=== PATIENT | female | born 1980 | race Caucasian/White ===

== ENCOUNTER 2017-10-14 10:12 | Inpatient (IN) | payer OTHER ==
[~2017-10-14] VITALS: Ht 172.7 cm; Wt 75.7 kg
[~2017-10-14 10:12] MED LIST: AMILORIDE5 MG PO; ASPIRIN81 M1 PO; CHLORTHALIDONE25 MG PO; CLONIDINE HCL0.1 M1 PO; CLONIDINE HCL0.1 MG PO; DUONEB 3 MG/3 ML3 M1 INH; FLOMAX0.4 MG PO; HYCODAN,HYDROME10 ML PO; KLONOPIN0.5 MG PO; LEVOTHYROXIN0.075 MG PO; LISINOPRIL10 M1 PO; LISINOPRIL5 MG PO; MACROBID100 M1 PO; METFORMIN500 MG PO; NORVASC10 MG PO; PERCOCET 325 MG1 TA2 PO; PREDNISONE20 M1 PO; VENTOLIN H0.09 MG/AC INH; WELLBUTRIN SR150 MG PO; ZITHROMAX250 MG PO; ZOFRAN4 MG PO
[2017-10-14 10:34] VITALS: BP 204/117
[2017-10-14 10:58] LABS: HEMATOCRIT 37.2 % (37.0-47.0); HEMOGLOBIN 13.1 g/dl (12.0-16.0); MEAN CORPUSCULAR HGB 29.2 pg (27.0-31.0); MEAN CORPUSCULAR HGB CONC 35.2 g/dl (33.0-37.0); MEAN PLATELET VOLUME 8.5 fl (9.6-12.3); PLATELET COUNT AUTOMATED 447 10*3/uL (130-400); RED BLOOD COUNT 4.48 10*6/uL (4.10-5.10); RED CELL DISTRI WIDTH 13.3 % (0-14.5); WHITE BLOOD COUNT 16.2 10*3/uL (4.8-10.8)
[2017-10-14 11:13] VITALS: BP 178/108
[2017-10-14 11:17] LABS: ACANTHOCYTES FEW; PLATELET SUFFICIENCY HIGH (NORMAL); TOTAL CELLS COUNTED 100 #CELLS
[2017-10-14 11:27] LABS: ALBUMIN 3.7 gm/dl (3.1-4.5); ALKALINE PHOSPHATASE 66 U/L (45-117); BUN 11 mg/dl (7-24); CHLORIDE 101 mmol/L (98-107); CREATININE 0.88 mg/dL (0.55-1.02); POTASSIUM 2.9 mmol/L (3.5-5.1); SGOT/AST 15 IU/L (3-35); SGPT/ALT 25 U/L (12-78); SODIUM 136 mmol/L (136-145); TOTAL PROTEIN 7.8 gm/dL (6.4-8.2)
[2017-10-14 11:39] VITALS: BP 155/95
[2017-10-14] MEDS ORDERED: CRESTOR20 M1 PO (12:53)
[2017-10-14] MEDS ORDERED: PROZAC10 MG PO (12:53)
[2017-10-14] MEDS ORDERED: REMERON15 M2 PO (12:54)
[2017-10-14 16:00] VITALS: BP 139/83
[2017-10-14 16:18] LABS: BILIRUBIN NEGATIVE (NEGATIVE); BLOOD TRACE-LYSED (NEGATIVE); CLARITY SL CLOUDY (CLEAR); COLOR YELLOW (YELLOW); GLUCOSE NEGATIVE (NEGATIVE); KETONE NEGATIVE (NEGATIVE); LEUKO ESTERASE TRACE (NEGATIVE); NITRITE NEGATIVE (NEGATIVE); SPECIFIC GRAVITY <= 1.005 (1.005-1.030); UROBILINOGEN 0.2 E.U./dl (0.2-1.0)
[2017-10-14 16:33] LABS: BACTERIA 4+
[2017-10-14 16:34] LABS: WBC 16-20 wbc/hpf (0-5)
[2017-10-14 20:00] VITALS: BP 165/85
[2017-10-14] MEDS ORDERED: LISINOPRIL20 MG PO (23:07)
[2017-10-14] MEDS ORDERED: CHLORTHALIDONE25 MG PO (23:07)
[2017-10-15 01:22] VITALS: BP 151/91
[2017-10-15 06:19] LABS: HEMATOCRIT 33.4 % (37.0-47.0); HEMOGLOBIN 11.4 g/dl (12.0-16.0); MEAN CORPUSCULAR HGB CONC 34.1 g/dl (33.0-37.0); MEAN PLATELET VOLUME 8.9 fl (9.6-12.3); PLATELET COUNT AUTOMATED 411 10*3/uL (130-400); RED BLOOD COUNT 3.93 10*6/uL (4.10-5.10); RED CELL DISTRI WIDTH 13.7 % (0-14.5); WHITE BLOOD COUNT 16.3 10*3/uL (4.8-10.8)
[2017-10-15 06:54] LABS: BUN 8 mg/dl (7-24); CHLORIDE 104 mmol/L (98-107); POTASSIUM 3.5 mmol/L (3.5-5.1); SODIUM 136 mmol/L (136-145)
[2017-10-15 07:06] LABS: CHOLESTEROL 187 mg/dL (<200); CREATININE 0.74 mg/dL (0.55-1.02); HDL CHOLESTEROL 57 mg/dl (40-60); LDL CHOLESTEROL 113 mg/dL (9-159); PHOSPHOROUS 1.5 mg/dL (2.5-4.9); THYROID STIM HORMONE (HS) 0.981 uIU/ml (0.358-4.75); TRIGLYCERIDES 86 mg/dl (<150); VLDL CHOLESTEROL 17 mg/dL (6-40)
[2017-10-15 07:19] LABS: PLATELET SUFFICIENCY HIGH (NORMAL); TOTAL CELLS COUNTED 100 #CELLS
[2017-10-15 07:20] LABS: ACANTHOCYTES FEW; BURR CELLS MODERATE
[2017-10-15 08:00] VITALS: BP 139/81
[2017-10-15 08:44] LABS: VITAMIN D, 25-HYDROXY 6.5 ng/mL (30-100)
[2017-10-15 12:00] VITALS: BP 142/87
[2017-10-15 16:00] VITALS: BP 135/77
[2017-10-15 20:00] VITALS: BP 147/77
[2017-10-16] VITALS: BP 130/73
[2017-10-16 07:14] LABS: BASO % 0.5 % (0.0-1.0); EOS # 0.2 10*3/uL (0.0-0.4); EOS % 2.4 % (1.0-4.0); HEMATOCRIT 32.7 % (37.0-47.0); LYMPH # 2.7 10*3/uL (1.3-4.4); LYMPH % 31.7 % (27.0-41.0); MEAN CELL VOLUME 86.5 fl (81.0-99.0); MEAN CORPUSCULAR HGB 29.1 pg (27.0-31.0); MEAN CORPUSCULAR HGB CONC 33.6 g/dl (33.0-37.0); MEAN PLATELET VOLUME 8.9 fl (9.6-12.3); MONO # 1.1 10*3/uL (0.1-1.0); MONO % 12.6 % (3.0-9.0); NEUT # 4.5 10*3/uL (2.3-7.9); NEUT % 52.6 % (47.0-73.0); PLATELET COUNT AUTOMATED 381 10*3/uL (130-400); RED BLOOD COUNT 3.78 10*6/uL (4.10-5.10); RED CELL DISTRI WIDTH 13.9 % (0-14.5); WHITE BLOOD COUNT 8.5 10*3/uL (4.8-10.8)
[2017-10-16 07:24] LABS: BUN 8 mg/dl (7-24); CHLORIDE 110 mmol/L (98-107); CREATININE 0.59 mg/dL (0.55-1.02); PHOSPHOROUS 2.6 mg/dL (2.5-4.9); POTASSIUM 3.7 mmol/L (3.5-5.1); SODIUM 142 mmol/L (136-145)
[2017-10-16 08:00] VITALS: BP 142/87
[2017-10-16] MEDS ORDERED: VITAMIN D-32000 UNI1 PO (10:45)
[2017-10-16] MEDS ORDERED: SEPTDS PO (10:45)
== END 2017-10-16 11:16 | disposition home or self-care (01) | DRG 871 ==
LOC: ED 10:12 → EDHOLD 11:24 → 4E 11:34
PROVIDERS: Internal Medicine Nephrology; Nurse Practitioner Family
DX: A41.51 Sepsis due to Escherichia coli [E. coli] (principal); J11.00 Influenza due to unidentified influenza virus with unspecified type of pneumonia; N39.0 Urinary tract infection, site not specified; E87.6 Hypokalemia; E66.3 Overweight; R31.9 Hematuria, unspecified; I16.0 Hypertensive urgency; D72.821 Monocytosis (symptomatic); D47.3 Essential (hemorrhagic) thrombocythemia; R73.9 Hyperglycemia, unspecified; G43.909 Migraine, unspecified, not intractable, without status migrainosus; I10 Essential (primary) hypertension; F41.9 Anxiety disorder, unspecified; E03.9 Hypothyroidism, unspecified; Z68.25 Body mass index [BMI] 25.0-25.9, adult; Z79.82 Long term (current) use of aspirin; Z79.899 Other long term (current) drug therapy; Z87.442 Personal history of urinary calculi; Z98.891 History of uterine scar from previous surgery; Z90.710 Acquired absence of both cervix and uterus; Z90.49 Acquired absence of other specified parts of digestive tract; Z82.49 Family history of ischemic heart disease and other diseases of the circulatory system; Z83.3 Family history of diabetes mellitus; Z72.89 Other problems related to lifestyle

== ENCOUNTER 2018-05-24 19:56 | Emergency (ER) | payer OTHER ==
[~2018-05-24] VITALS: Wt 72.6 kg
--- NOTE | ~2018-05-24 | EKG ---
[place], [place] ELECTROCARDIOGRAM REPORT NAME: NICHOL OWEN UNIT #: [id number] ROOM: DOCTOR: EPIPHANY DRAFT REPORT BIRTHDATE: [birth year] [facility] Test Date: 2018-05-24 Test Time: 20:19:34 Pat Name: NICHOL OWEN Department: ER Room: 2 Gender: F Media Relations Coordinator: Vu Fleming : 1980 Requested By: CARRIE JONES Order Number: [id number] Reading MD: Yefri Zamorano MD Measurements Intervals [place] Rate: 83 P: 37 CO: 147 QRS: -2 QRSD: 83 T: 31 QT: 406 QTc: 477 Interpretive Statements Sinus rhythm Left ventricular hypertrophy Electronically Signed On 05-28-2018 9:07:28 PDT by Yefri Zamorano MD CM:EKGRPT:ELECTROCARDIOGRAM REPORT [id number] CARRIE CANADA DRAFT REPORT CARRIE JONES DO
[~2018-05-24 19:56] MED LIST changes: +CRESTOR20 M1 PO; +LISINOPRIL20 MG PO; +PROZAC10 MG PO; +REMERON15 M2 PO; +SEPTDS PO; +VITAMIN D-32000 UNI1 PO
[2018-05-24] MEDS ORDERED: 'CLONIDINE0.1 MG PO (19:59)
[2018-05-24 20:31] LABS: BASO # 0.1 10*3/uL (0.0-0.1); BASO % 0.3 % (0.0-1.0); EOS # 0.1 10*3/uL (0.0-0.4); EOS % 0.4 % (1.0-4.0); HEMATOCRIT 39.1 % (37.0-47.0); HEMOGLOBIN 13.2 g/dl (12.0-16.0); LYMPH # 1.8 10*3/uL (1.3-4.4); LYMPH % 10.1 % (27.0-41.0); MEAN CELL VOLUME 84.3 fl (81.0-99.0); MEAN CORPUSCULAR HGB 28.4 pg (27.0-31.0); MEAN CORPUSCULAR HGB CONC 33.8 g/dl (33.0-37.0); MEAN PLATELET VOLUME 8.9 fl (9.6-12.3); MONO # 0.9 10*3/uL (0.1-1.0); NEUT # 14.9 10*3/uL (2.3-7.9); NEUT % 83.8 % (47.0-73.0); PLATELET COUNT AUTOMATED 488 10*3/uL (130-400); RED BLOOD COUNT 4.64 10*6/uL (4.10-5.10); RED CELL DISTRI WIDTH 13.3 % (0-14.5); WHITE BLOOD COUNT 17.8 10*3/uL (4.8-10.8)
[2018-05-24 20:39] LABS: ACT PARTIAL THROMBO TIME 24.3 SECONDS (20.8-31.5)
[2018-05-24 20:47] LABS: ALKALINE PHOSPHATASE 72 U/L (45-117); BUN 9 mg/dl (7-24); CHLORIDE 104 mmol/L (98-107); POTASSIUM 2.9 mmol/L (3.5-5.1); SGOT/AST 20 IU/L (3-35); SGPT/ALT 39 U/L (12-78); SODIUM 137 mmol/L (136-145); TOTAL PROTEIN 8.2 gm/dL (6.4-8.2)
[2018-05-24 20:49] LABS: TROPONIN I < 0.015 ng/ml (<0.045)
[2018-05-24 22:48] LABS: BILIRUBIN NEGATIVE (NEGATIVE); BLOOD 3+ (NEGATIVE); CLARITY CLEAR (CLEAR); COLOR YELLOW (YELLOW); GLUCOSE NEGATIVE (NEGATIVE); KETONE TRACE (NEGATIVE); LEUKO ESTERASE NEGATIVE (NEGATIVE); NITRITE NEGATIVE (NEGATIVE); SPECIFIC GRAVITY 1.015 (1.005-1.030); UROBILINOGEN 0.2 E.U./dl (0.2-1.0)
[2018-05-24 22:55] LABS: RBC 41-50 rbc/hpf (0-2)
[2018-05-24 22:56] LABS: BACTERIA TRACE; EPITHELIAL CELLS 25-30; WBC 0-2 wbc/hpf (0-5)
== END 2018-05-25 00:04 | disposition short-term general hospital (02) ==
LOC: ED 19:56
PROVIDERS: Student in an Organized Health Care Education/Training Program
DX: N20.1 Calculus of ureter (principal); I10 Essential (primary) hypertension; F41.9 Anxiety disorder, unspecified; R73.9 Hyperglycemia, unspecified; E03.9 Hypothyroidism, unspecified; Z90.49 Acquired absence of other specified parts of digestive tract; Z90.710 Acquired absence of both cervix and uterus; Z87.442 Personal history of urinary calculi; Z79.82 Long term (current) use of aspirin; Z79.899 Other long term (current) drug therapy; Z90.89 Acquired absence of other organs

== ENCOUNTER 2019-05-27 09:39 | Inpatient (IN) | payer OTHER ==
[~2019-05-27] VITALS: Ht 172.7 cm; Wt 76.7 kg
[2019-05-27] VITALS (11 sets, daily range): BP systolic 150–262; BP diastolic 92–164
--- NOTE | ~2019-05-27 | EKG ---
[place], [place] ELECTROCARDIOGRAM REPORT NAME: NICHOL OWEN UNIT #: [id number] ROOM: [facility] DOCTOR: KEITH DRAFT REPORT BIRTHDATE: [birth year] [facility] Test Date: 2019-05-27 Test Time: 10:06:56 Pat Name: NICHOL OWEN Department: Room: [facility] Gender: F Student Recruiter: Perla Young : 1980 Requested By: WANDA TINOCO DNP Order Number: [id number] Reading MD: Alejandro Mclaughlin MD Measurements Intervals [place] Rate: 84 P: 28 VT: 146 QRS: -7 QRSD: 85 T: 17 QT: 372 QTc: 440 Interpretive Statements Sinus rhythm Left ventricular hypertrophy Poor R wave progression. Compared to ECG 05/24/2018 20:19:34 Electronically Signed On 05-27-2019 14:43:16 PDT by Alejandro Mclaughlin MD CM:EKGRPT:ELECTROCARDIOGRAM REPORT [id number] WANDA MONREALANY DRAFT REPORT WANDA TINOCO DNP
[~2019-05-27 09:39] MED LIST changes: +'CLONIDINE0.1 MG PO
[2019-05-27 10:28] LABS: BASO # 0.1 10*3/uL (0.0-0.1); BASO % 0.6 % (0.0-1.0); EOS # 0.2 10*3/uL (0.0-0.4); EOS % 2.3 % (1.0-4.0); HEMATOCRIT 43.1 % (37.0-47.0); HEMOGLOBIN 14.4 g/dl (12.0-16.0); LYMPH # 2.6 10*3/uL (1.3-4.4); LYMPH % 28.6 % (27.0-41.0); MEAN CELL VOLUME 87.6 fl (81.0-99.0); MEAN CORPUSCULAR HGB 29.3 pg (27.0-31.0); MEAN CORPUSCULAR HGB CONC 33.4 g/dl (33.0-37.0); MEAN PLATELET VOLUME 8.8 fl (9.6-12.3); MONO # 0.6 10*3/uL (0.1-1.0); MONO % 6.5 % (3.0-9.0); NEUT # 5.5 10*3/uL (2.3-7.9); NEUT % 61.4 % (47.0-73.0); PLATELET COUNT AUTOMATED 476 10*3/uL (130-400); RED BLOOD COUNT 4.92 10*6/uL (4.10-5.10); RED CELL DISTRI WIDTH 13.3 % (0-14.5)
[2019-05-27 10:41] LABS: ACT PARTIAL THROMBO TIME 26.6 SECONDS (20.0-32.1)
[2019-05-27 10:56] LABS: ALKALINE PHOSPHATASE 108 U/L (45-117); BUN 8 mg/dl (7-24); CHLORIDE 103 mmol/L (98-107); LIPASE 174 U/L (73-393); POTASSIUM 3.4 mmol/L (3.5-5.1); SGOT/AST 54 IU/L (3-35); SGPT/ALT 119 U/L (12-78); SODIUM 140 mmol/L (136-145); TOTAL PROTEIN 7.9 gm/dL (6.4-8.2)
[2019-05-27 11:04] LABS: TROPONIN I 0.063 ng/ml (<0.045)
--- NOTE | 2019-05-27 11:05 | NUR ---
NOTITIED BY LAB PTS TROPONIN IS 0.063. TINOCO DNP NOTIFIED.
[2019-05-27 11:31] LABS: BILIRUBIN NEGATIVE (NEGATIVE); BLOOD TRACE-INTACT (NEGATIVE); CLARITY SL CLOUDY (CLEAR); COLOR YELLOW (YELLOW); GLUCOSE NEGATIVE (NEGATIVE); KETONE NEGATIVE (NEGATIVE); LEUKO ESTERASE NEGATIVE (NEGATIVE); NITRITE NEGATIVE (NEGATIVE); UROBILINOGEN 0.2 E.U./dl (0.2-1.0)
[2019-05-27 11:45] LABS: BACTERIA 1+
--- NOTE | 2019-05-27 11:45 | NUR ---
Attempted to call report on patient. No ICCU nurse available for report. Will continue to monitor.
[2019-05-27 11:47] LABS: EPITHELIAL CELLS 21-30
--- NOTE | 2019-05-27 12:14 | NUR ---
Patient continues to be in ultrasound will continue to monitor.
--- NOTE | 2019-05-27 12:30 | NUR ---
A 39, admitted to ICCU, under the services of PRABHJOT Saenz DO with a diagnosis of HTN CRISIS. Chief complaint is LEFT SIDED FACIAL NUMBNESS INTO LEFT ARM AND LEG. Patient arrived via ambulatory from ER. Monitor applied. Initial assessment completed. Vital signs taken and recorded. PRABHJOT SAENZ DO notified of admission to the unit. Orders received. See assessment for past medical history, medications and allergies. Patient and/or family oriented to unit. [facility] ICCU visitation policy reviewed. Clothing/patient valuable form completed. NARESH SUH
--- NOTE | 2019-05-27 13:00 | NUR ---
HOME MEDS RECONCILED, PT HAS NOT TAKEN HER BP MEDS SINCE MARCH AND HAS NOT INFORMED DR LEZAMA OF THIS STATES SHE CHAECKS HER BP AT HOME AND IT HAS BEEN FINE WITH DR LAINE RED
--- NOTE | 2019-05-27 13:45 | NUR ---
CARDIOLOGY RESIDENTS HERE AND AWARE OF CONSULT
--- NOTE | 2019-05-27 14:55 | NUR ---
DR LEZAMA'S SERVICE NOTIFIED ON CONSULT
--- NOTE | 2019-05-27 15:42 | NUR ---
TYLENOL FOR C/O MILD HEADACHE
--- NOTE | 2019-05-27 15:44 | NUR ---
DR SMITH AWARE OF TROP 0.071
--- NOTE | 2019-05-27 16:05 | NUR ---
C/O NUMBNESS IN LEFT FACE AND ENTIRE LEFT ARM, DR SMITH UPDATED
--- NOTE | 2019-05-27 17:22 | NUR ---
AWAITING TRANSFER TO [facility]
--- NOTE | 2019-05-27 18:35 | NUR ---
REPORT TO [facility] AT [phone]
--- NOTE | 2019-05-27 19:50 | NUR ---
PT TRANSFERRED TO [facility]. ALL BELNOGNINGS AND PAPERWORK SENT.
== END 2019-05-27 19:50 | disposition short-term general hospital (02) | DRG 305 ==
LOC: ED 09:39 → EDHOLD 11:20 → ICCU 11:30
PROVIDERS: Nurse Practitioner Family; ADMIT Internal Medicine
DX: I16.1 Hypertensive emergency (principal); I24.8 Other forms of acute ischemic heart disease; R00.0 Tachycardia, unspecified; D47.3 Essential (hemorrhagic) thrombocythemia; R73.9 Hyperglycemia, unspecified; E87.6 Hypokalemia; I13.0 Hypertensive heart and chronic kidney disease with heart failure and stage 1 through stage 4 chronic kidney disease, or unspecified chronic kidney disease; N18.9 Chronic kidney disease, unspecified; I50.9 Heart failure, unspecified; G43.909 Migraine, unspecified, not intractable, without status migrainosus; E03.9 Hypothyroidism, unspecified; R20.0 Anesthesia of skin; F41.9 Anxiety disorder, unspecified; F43.10 Post-traumatic stress disorder, unspecified; R74.0 Nonspecific elevation of levels of transaminase and lactic acid dehydrogenase [LDH]; Z87.442 Personal history of urinary calculi; Z90.49 Acquired absence of other specified parts of digestive tract; Z98.891 History of uterine scar from previous surgery; Z90.710 Acquired absence of both cervix and uterus; Z82.49 Family history of ischemic heart disease and other diseases of the circulatory system; Z79.82 Long term (current) use of aspirin; Z79.899 Other long term (current) drug therapy; Z79.890 Hormone replacement therapy; Z91.14 Patient's other noncompliance with medication regimen; Z83.3 Family history of diabetes mellitus

== ENCOUNTER 2019-05-30 19:28 | Emergency (ER) | payer OTHER ==
[~2019-05-30] VITALS: Wt 81.2 kg
--- NOTE | ~2019-05-30 | EKG ---
[place], [place] ELECTROCARDIOGRAM REPORT NAME: NICHOL OWEN UNIT #: [id number] ROOM: DOCTOR: KEITH DRAFT REPORT BIRTHDATE: [birth year] [facility] Test Date: 2019-05-30 Test Time: 19:38:33 Pat Name: NICHOL OWEN Department: Room: Gender: F Technical Support Coordinator: HUSAM : 1980 Requested By: ALEXANDRE TUCKER Order Number: [id number] Reading MD: Alejandro Mclaughlin MD Measurements Intervals [place] Rate: 110 P: SC: QRS: 88 QRSD: 154 T: -49 QT: 396 QTc: 536 Interpretive Statements Atrial fibrillation, Anterolateral infarct, acute IVCD Prolonged QT interval Baseline wander in lead(s) I,II,III,aVL,aVF,V2 Compared to ECG 05/27/2019 10:06:56 Myocardial infarct finding now present Prolonged QT interval now present Sinus rhythm no longer present Left ventricular hypertrophy no longer present Poor R-wave progression no longer present Electronically Signed On 05-31-2019 12:41:38 PDT by Alejandro Mclaughlin MD CM:EKGRPT:ELECTROCARDIOGRAM REPORT [id number] ALEXANDRE CANADA DRAFT REPORT ALEXANDRE TUCKER DO
[2019-05-30 20:01] LABS: HEMATOCRIT 39.5 % (37.0-47.0); HEMOGLOBIN 12.9 g/dl (12.0-16.0); MEAN CELL VOLUME 89.8 fl (81.0-99.0); MEAN CORPUSCULAR HGB 29.3 pg (27.0-31.0); MEAN CORPUSCULAR HGB CONC 32.7 g/dl (33.0-37.0); MEAN PLATELET VOLUME 9.2 fl (9.6-12.3); PLATELET COUNT AUTOMATED 450 10*3/uL (130-400); RED CELL DISTRI WIDTH 13.2 % (0-14.5); WHITE BLOOD COUNT 19.3 10*3/uL (4.8-10.8)
[2019-05-30 20:07] LABS: ABG HCO3 11.5 mmol/l (22-26); ABG O2 SATURATION 99.5 % (95-97); ARTERIAL BLOOD GAS PCO2 23.8 mmHg (35-45); ARTERIAL BLOOD GAS PH 7.298 (7.35-7.45)
[2019-05-30 20:09] LABS: ABG BASE EXCESS -13.6 mmol/L (-2.0-2.0)
[2019-05-30 20:19] LABS: CREATININE 1.23 mg/dL (0.55-1.02); TOTAL PROTEIN 6.1 gm/dL (6.4-8.2)
[2019-05-30 20:20] LABS: TOTAL CELLS COUNTED 100 #CELLS
[2019-05-30 20:21] LABS: BURR CELLS FEW; PLATELET SUFFICIENCY HIGH (NORMAL)
[2019-05-30 20:25] LABS: TROPONIN I 2.55 ng/ml (<0.045)
== END 2019-05-30 22:15 | disposition short-term general hospital (02) ==
LOC: ED 19:28
PROVIDERS: Emergency Medicine
DX: I46.9 Cardiac arrest, cause unspecified (principal); I16.1 Hypertensive emergency; I49.01 Ventricular fibrillation; R79.89 Other specified abnormal findings of blood chemistry; R74.0 Nonspecific elevation of levels of transaminase and lactic acid dehydrogenase [LDH]; I10 Essential (primary) hypertension; G43.909 Migraine, unspecified, not intractable, without status migrainosus; E03.9 Hypothyroidism, unspecified; Z79.899 Other long term (current) drug therapy; Z79.82 Long term (current) use of aspirin

== ENCOUNTER → 2019-06-19 | Outpatient (CLI) | payer OTHER | END | disposition home or self-care (01) | LOC: CT 10:00 | DX: I63.50 Cerebral infarction due to unspecified occlusion or stenosis of unspecified cerebral artery (principal) ==

== ENCOUNTER 2019-07-22 13:39 | Emergency (ER) | payer OTHER ==
[~2019-07-22] VITALS: Ht 172.7 cm; Wt 72.6 kg
--- NOTE | ~2019-07-22 | EKG ---
[place], [place] ELECTROCARDIOGRAM REPORT NAME: NICHOL OWEN UNIT #: [id number] ROOM: DOCTOR: KEITH DRAFT REPORT BIRTHDATE: [birth year] [facility] Test Date: 2019-07-22 Test Time: 14:04:29 Pat Name: NICHOL OWEN Department: Room: Gender: F Computer Aide: : 1980 Requested By: JUAN ALBERTO WONG Order Number: [id number] Reading MD: Alejandro Mclaughlin MD Measurements Intervals [place] Rate: 66 P: 49 WI: 139 QRS: -6 QRSD: 100 T: 22 QT: 419 QTc: 439 Interpretive Statements Sinus rhythm Inferior infarct, old Compared to ECG 05/30/2019 19:38:33 Atrial fibrillation no longer present Intraventricular conduction delay no longer present Prolonged QT interval no longer present Myocardial infarct finding still present Electronically Signed On 07-23-2019 8:59:52 PST by Alejandro Mclaughlin MD CM:EKGRPT:ELECTROCARDIOGRAM REPORT [id number] JUAN ALBERTO CANADA DRAFT REPORT JUAN ALBERTO WONG DO
[2019-07-22 14:20] LABS: BASO % 0.4 % (0.0-1.0); EOS # 0.1 10*3/uL (0.0-0.4); EOS % 1.5 % (1.0-4.0); HEMOGLOBIN 12.8 g/dl (12.0-16.0); LYMPH # 2.7 10*3/uL (1.3-4.4); LYMPH % 29.2 % (27.0-41.0); MEAN CELL VOLUME 90.7 fl (81.0-99.0); MEAN PLATELET VOLUME 8.6 fl (9.6-12.3); MONO # 0.5 10*3/uL (0.1-1.0); MONO % 5.6 % (3.0-9.0); NEUT # 5.8 10*3/uL (2.3-7.9); NEUT % 62.8 % (47.0-73.0); PLATELET COUNT AUTOMATED 486 10*3/uL (130-400); RED BLOOD COUNT 4.41 10*6/uL (4.10-5.10); RED CELL DISTRI WIDTH 12.9 % (0-14.5); WHITE BLOOD COUNT 9.3 10*3/uL (4.8-10.8)
[2019-07-22 14:35] LABS: ACT PARTIAL THROMBO TIME 26.2 SECONDS (20.0-32.1)
[2019-07-22 14:37] LABS: ALBUMIN 3.7 gm/dl (3.1-4.5); ALKALINE PHOSPHATASE 84 U/L (45-117); BUN 11 mg/dl (7-24); CHLORIDE 104 mmol/L (98-107); CREATININE 0.76 mg/dL (0.55-1.02); LIPASE 223 U/L (73-393); POTASSIUM 3.9 mmol/L (3.5-5.1); SGOT/AST 20 IU/L (3-35); SGPT/ALT 32 U/L (12-78); SODIUM 137 mmol/L (136-145); TOTAL PROTEIN 7.7 gm/dL (6.4-8.2)
[2019-07-22 14:43] LABS: TROPONIN I < 0.015 ng/ml (<0.045)
== END 2019-07-22 15:43 | disposition home or self-care (01) ==
LOC: ED 13:39
PROVIDERS: Emergency Medicine
DX: I10 Essential (primary) hypertension (principal); R42 Dizziness and giddiness; E03.9 Hypothyroidism, unspecified; E11.9 Type 2 diabetes mellitus without complications; G43.909 Migraine, unspecified, not intractable, without status migrainosus; I25.2 Old myocardial infarction; Z86.73 Personal history of transient ischemic attack (TIA), and cerebral infarction without residual deficits; Z79.899 Other long term (current) drug therapy; Z79.82 Long term (current) use of aspirin

== ENCOUNTER → 2019-08-16 | Outpatient (CLI) | payer OTHER ==
[2019-08-18 11:08] LABS: LUPUS DRVVT 35.7 sec (0.0-47.0); PTT-LA 34.8 sec (0.0-51.9)
[2019-08-18 12:09] LABS: LUPUS REFLEX INTERPRETATION Comment: (.)
[2019-08-18 16:06] LABS: ANTI-THROMBIN III ACTIVITY 102 % (75-135); PROTEIN S, FREE 78 % (57-157); PROTEIN S, TOTAL 70 % (60-150); PROTEIN S-FUNCTIONAL 164525 78 % (63-140)
== END | disposition home or self-care (01) ==
LOC: LAB 09:07
PROVIDERS: Internal Medicine Hematology & Oncology
DX: D68.59 Other primary thrombophilia (principal)

== ENCOUNTER 2019-09-24 10:38 | Emergency (ER) | payer OTHER ==
[~2019-09-24] VITALS: Ht 172.7 cm; Wt 74.8 kg
[2019-09-24 11:11] LABS: BASO % 0.1 % (0.0-1.0); HEMATOCRIT 38.5 % (37.0-47.0); HEMOGLOBIN 12.7 g/dl (12.0-16.0); LYMPH # 1.3 10*3/uL (1.3-4.4); LYMPH % 7.8 % (27.0-41.0); MEAN CELL VOLUME 85.9 fl (81.0-99.0); MEAN CORPUSCULAR HGB 28.3 pg (27.0-31.0); MEAN PLATELET VOLUME 9.2 fl (9.6-12.3); MONO # 0.7 10*3/uL (0.1-1.0); MONO % 4.1 % (3.0-9.0); NEUT # 14.1 10*3/uL (2.3-7.9); NEUT % 87.4 % (47.0-73.0); PLATELET COUNT AUTOMATED 523 10*3/uL (130-400); RED BLOOD COUNT 4.48 10*6/uL (4.10-5.10); RED CELL DISTRI WIDTH 12.4 % (0-14.5); WHITE BLOOD COUNT 16.1 10*3/uL (4.8-10.8)
[2019-09-24 11:17] LABS: CHLORIDE 107 mmol/L (98-107); POTASSIUM 4.2 mmol/L (3.5-5.1); SODIUM 137 mmol/L (136-145)
[2019-09-24 11:22] LABS: ACT PARTIAL THROMBO TIME 24.8 SECONDS (20.0-32.1)
[2019-09-24 11:31] LABS: ALBUMIN 3.8 gm/dl (3.1-4.5); ALKALINE PHOSPHATASE 94 U/L (45-117); BUN 18 mg/dl (7-24); CREATININE 0.96 mg/dL (0.55-1.02); SGOT/AST 11 IU/L (3-35); SGPT/ALT 30 U/L (12-78); TOTAL PROTEIN 7.6 gm/dL (6.4-8.2)
[2019-09-24 11:34] LABS: TROPONIN I < 0.015 ng/ml (<0.045)
== END 2019-09-24 14:56 | disposition home or self-care (01) ==
LOC: ED 10:38
PROVIDERS: Emergency Medicine
DX: R06.00 Dyspnea, unspecified (principal); G43.909 Migraine, unspecified, not intractable, without status migrainosus; I25.10 Atherosclerotic heart disease of native coronary artery without angina pectoris; I25.2 Old myocardial infarction; I10 Essential (primary) hypertension; E11.9 Type 2 diabetes mellitus without complications; E03.9 Hypothyroidism, unspecified; Z87.442 Personal history of urinary calculi; Z79.899 Other long term (current) drug therapy; Z79.82 Long term (current) use of aspirin; Z86.73 Personal history of transient ischemic attack (TIA), and cerebral infarction without residual deficits; Z90.710 Acquired absence of both cervix and uterus; Z90.49 Acquired absence of other specified parts of digestive tract

== ENCOUNTER → 2020-08-03 | Outpatient (CLI) | payer OTHER ==
[~2020-08-03] MED LIST changes: +ALDACTONE25 MG PO; +CARVEDILOL12.5 MG PO; +CLOPIDOGREL75 MG PO; +DULOXETINE HCL20 MG PO; +GABAPENTIN600 MG PO; +HYDROCHLOROTHIA25 M1 PO
== END | disposition home or self-care (01) ==
LOC: COVID19 14:14
PROVIDERS: ATTEND Internal Medicine
DX: Z20.828 Contact with and (suspected) exposure to other viral communicable diseases (principal)

== ENCOUNTER → 2020-08-31 | Outpatient (CLI) | payer OTHER | END | disposition home or self-care (01) | LOC: COVID19 13:31 | PROVIDERS: ATTEND Internal Medicine | DX: U07.1 COVID-19 (principal) ==

== ENCOUNTER 2020-09-15 11:10 | Observation (INO) | payer OTHER ==
[~2020-09-15] VITALS: Ht 172.7 cm; Wt 82.8 kg
[~2020-09-15 11:10] MED LIST changes: -ALDACTONE25 MG PO; -CARVEDILOL12.5 MG PO; -CLOPIDOGREL75 MG PO; -DULOXETINE HCL20 MG PO; -GABAPENTIN600 MG PO; -HYDROCHLOROTHIA25 M1 PO
[2020-09-15 11:19] VITALS: BP 124/87
[2020-09-15 11:52] LABS: BASO # 0.1 10*3/uL (0.0-0.1); BASO % 0.3 % (0.0-1.0); EOS # 0.3 10*3/uL (0.0-0.4); EOS % 1.5 % (1.0-4.0); HEMATOCRIT 39.6 % (37.0-47.0); LYMPH # 2.8 10*3/uL (1.3-4.4); LYMPH % 14.1 % (27.0-41.0); MEAN CORPUSCULAR HGB 29.3 pg (27.0-31.0); MEAN CORPUSCULAR HGB CONC 33.3 g/dl (33.0-37.0); MEAN PLATELET VOLUME 8.9 fl (9.6-12.3); MONO # 1.4 10*3/uL (0.1-1.0); MONO % 7.3 % (3.0-9.0); PLATELET COUNT AUTOMATED 480 10*3/uL (130-400); RED CELL DISTRI WIDTH 13.2 % (0-14.5); WHITE BLOOD COUNT 19.7 10*3/uL (4.8-10.8)
[2020-09-15 12:06] LABS: ACT PARTIAL THROMBO TIME 24.3 SECONDS (20.0-32.1)
[2020-09-15 12:07] LABS: ALBUMIN 2.8 gm/dl (3.1-4.5); ALKALINE PHOSPHATASE 65 U/L (45-117); BUN 16 mg/dl (7-24); CHLORIDE 99 mmol/L (98-107); CREATININE 0.84 mg/dL (0.55-1.02); SGOT/AST 25 IU/L (3-35); SGPT/ALT 53 U/L (12-78); SODIUM 132 mmol/L (136-145); TOTAL PROTEIN 6.7 gm/dL (6.4-8.2)
[2020-09-15 15:00] VITALS: BP 97/65
[2020-09-15 15:20] LABS: BILIRUBIN Negative (Negative); BLOOD Negative (Negative); CLARITY Clear (Clear); COLOR Yellow (Yellow); GLUCOSE Negative (Negative); KETONE Negative (Negative); LEUKO ESTERASE Negative (Negative); NITRITE Negative (Negative); SPECIFIC GRAVITY 1.015 (1.001-1.030); UROBILINOGEN 0.2 E.U./dl (0.0-1.0)
[2020-09-15 15:38] LABS: RBC 0-2 rbc/hpf (0-2)
[2020-09-15 15:39] LABS: BACTERIA 1+; EPITHELIAL CELLS 16-20
[2020-09-15 16:57] VITALS: BP 100/62
[2020-09-15] MEDS ORDERED: DULOXETINE HCL20 MG PO (17:36)
[2020-09-15] MEDS ORDERED: HYDROCHLOROTHIA25 M1 PO (17:36)
[2020-09-15] MEDS ORDERED: CARVEDILOL12.5 MG PO (17:36)
[2020-09-15] MEDS ORDERED: CLOPIDOGREL75 MG PO (17:37)
[2020-09-15] MEDS ORDERED: ALDACTONE25 MG PO (17:37)
[2020-09-15] MEDS ORDERED: GABAPENTIN600 MG PO (17:39)
[2020-09-15 18:56] VITALS: BP 104/56
[2020-09-15 20:00] VITALS: BP 106/62
[2020-09-16] VITALS: BP 106/56
[2020-09-16 06:31] LABS: BASO % 0.1 % (0.0-1.0); EOS # 0.2 10*3/uL (0.0-0.4); EOS % 1.4 % (1.0-4.0); HEMATOCRIT 36.4 % (37.0-47.0); LYMPH # 2.9 10*3/uL (1.3-4.4); LYMPH % 20.8 % (27.0-41.0); MEAN CELL VOLUME 89.9 fl (81.0-99.0); MEAN CORPUSCULAR HGB 29.4 pg (27.0-31.0); MEAN CORPUSCULAR HGB CONC 32.7 g/dl (33.0-37.0); MEAN PLATELET VOLUME 8.7 fl (9.6-12.3); MONO # 1.5 10*3/uL (0.1-1.0); MONO % 10.7 % (3.0-9.0); NEUT # 9.3 10*3/uL (2.3-7.9); NEUT % 66.3 % (47.0-73.0); PLATELET COUNT AUTOMATED 422 10*3/uL (130-400); RED BLOOD COUNT 4.05 10*6/uL (4.10-5.10); RED CELL DISTRI WIDTH 13.2 % (0-14.5)
[2020-09-16 06:48] LABS: ALBUMIN 2.7 gm/dl (3.1-4.5); ALKALINE PHOSPHATASE 64 U/L (45-117); BUN 16 mg/dl (7-24); CHLORIDE 102 mmol/L (98-107); CPK 33 U/L (26-192); CREATININE 0.76 mg/dL (0.55-1.02); LDH 193 U/L (84-246); SGOT/AST 15 IU/L (3-35); SGPT/ALT 46 U/L (12-78); SODIUM 136 mmol/L (136-145); TOTAL PROTEIN 6.5 gm/dL (6.4-8.2)
[2020-09-16 08:00] VITALS: BP 106/67
== END 2020-09-16 11:50 | disposition home or self-care (01) ==
LOC: ED 11:10 → EDHOLD 13:02 → 4E 16:49
PROVIDERS: Internal Medicine; Registered Nurse; ADMIT Internal Medicine; ATTEND Internal Medicine
DX: U07.1 COVID-19 (principal); J12.82 Pneumonia due to coronavirus disease 2019; A41.9 Sepsis, unspecified organism; R06.00 Dyspnea, unspecified; E87.1 Hypo-osmolality and hyponatremia; R79.82 Elevated C-reactive protein (CRP); D72.829 Elevated white blood cell count, unspecified; D47.3 Essential (hemorrhagic) thrombocythemia; E03.9 Hypothyroidism, unspecified; R00.0 Tachycardia, unspecified; R79.89 Other specified abnormal findings of blood chemistry; R70.0 Elevated erythrocyte sedimentation rate; E44.0 Moderate protein-calorie malnutrition; I10 Essential (primary) hypertension; F41.9 Anxiety disorder, unspecified; F43.10 Post-traumatic stress disorder, unspecified

== ENCOUNTER 2020-09-17 19:22 | Emergency (ER) | payer OTHER ==
[~2020-09-17] VITALS: Ht 172.7 cm; Wt 86.2 kg
[~2020-09-17 19:22] MED LIST changes: +ALDACTONE25 MG PO; +CARVEDILOL12.5 MG PO; +CLOPIDOGREL75 MG PO; +DULOXETINE HCL20 MG PO; +GABAPENTIN600 MG PO; +HYDROCHLOROTHIA25 M1 PO
[2020-09-17 19:52] LABS: BASO % 0.3 % (0.0-1.0); EOS # 0.2 10*3/uL (0.0-0.4); EOS % 1.8 % (1.0-4.0); HEMATOCRIT 36.4 % (37.0-47.0); LYMPH # 2.3 10*3/uL (1.3-4.4); LYMPH % 19.9 % (27.0-41.0); MEAN CELL VOLUME 89.9 fl (81.0-99.0); MEAN CORPUSCULAR HGB 28.9 pg (27.0-31.0); MEAN CORPUSCULAR HGB CONC 32.1 g/dl (33.0-37.0); MEAN PLATELET VOLUME 8.6 fl (9.6-12.3); MONO # 1.2 10*3/uL (0.1-1.0); MONO % 10.8 % (3.0-9.0); NEUT # 7.6 10*3/uL (2.3-7.9); NEUT % 66.6 % (47.0-73.0); PLATELET COUNT AUTOMATED 439 10*3/uL (130-400); RED BLOOD COUNT 4.05 10*6/uL (4.10-5.10); RED CELL DISTRI WIDTH 13.1 % (0-14.5); WHITE BLOOD COUNT 11.4 10*3/uL (4.8-10.8)
[2020-09-17 20:03] LABS: ACT PARTIAL THROMBO TIME 24.7 SECONDS (20.0-32.1)
[2020-09-17 20:18] LABS: ALBUMIN 2.8 gm/dl (3.1-4.5); ALKALINE PHOSPHATASE 64 U/L (45-117); BUN 14 mg/dl (7-24); CHLORIDE 104 mmol/L (98-107); POTASSIUM 3.9 mmol/L (3.5-5.1); SGOT/AST 22 IU/L (3-35); SGPT/ALT 46 U/L (12-78); SODIUM 135 mmol/L (136-145); TOTAL PROTEIN 6.8 gm/dL (6.4-8.2)
[2020-09-17 20:19] LABS: CKMB < 1.0 ng/ml (0.5-3.6); CPK 52 U/L (26-192); TROPONIN I < 0.015 ng/ml (<0.045)
== END 2020-09-17 21:19 | disposition short-term general hospital (02) ==
LOC: ED 19:22
PROVIDERS: Physician Assistant
DX: R29.810 Facial weakness (principal); R79.1 Abnormal coagulation profile; Z79.899 Other long term (current) drug therapy; Z79.82 Long term (current) use of aspirin

== ENCOUNTER 2022-07-13 23:42 | Emergency (ER) | payer BC, OTHER ==
[~2022-07-13] VITALS: Ht 175.2 cm; Wt 86.2 kg
[2022-07-14 00:13] LABS: BASO # 0.1 10*3/uL (0.0-0.1); BASO % 0.3 % (0.0-1.0); EOS # 0.3 10*3/uL (0.0-0.4); HEMATOCRIT 41.5 % (37.0-47.0); LYMPH # 3.8 10*3/uL (1.3-4.4); MEAN CELL VOLUME 87.2 fl (81.0-99.0); MEAN CORPUSCULAR HGB 29.8 pg (27.0-31.0); MEAN CORPUSCULAR HGB CONC 34.2 g/dl (33.0-37.0); MEAN PLATELET VOLUME 8.9 fl (9.6-12.3); MONO # 1.1 10*3/uL (0.1-1.0); NEUT # 9.9 10*3/uL (2.3-7.9); NEUT % 65.2 % (47.0-73.0); PLATELET COUNT AUTOMATED 539 10*3/uL (130-400); RED BLOOD COUNT 4.76 10*6/uL (4.10-5.10); RED CELL DISTRI WIDTH 13.4 % (0-14.5); WHITE BLOOD COUNT 15.2 10*3/uL (4.8-10.8)
[2022-07-14 00:26] LABS: ACT PARTIAL THROMBO TIME 25.9 SECONDS (20.0-32.1)
[2022-07-14 00:33] LABS: ALKALINE PHOSPHATASE 96 U/L (45-117); BUN 12 mg/dl (7-24); CHLORIDE 105 mmol/L (98-107); CREATININE 0.85 mg/dL (0.55-1.02); POTASSIUM 3.5 mmol/L (3.5-5.1); SGOT/AST 22 IU/L (3-35); SGPT/ALT 43 U/L (12-78); SODIUM 136 mmol/L (136-145); TOTAL PROTEIN 7.5 gm/dL (6.4-8.2)
== END 2022-07-14 02:28 | disposition home or self-care (01) ==
LOC: ED 23:42
PROVIDERS: Family Medicine
DX: R07.89 Other chest pain (principal); I25.2 Old myocardial infarction; Z90.49 Acquired absence of other specified parts of digestive tract; Z90.710 Acquired absence of both cervix and uterus; Z79.82 Long term (current) use of aspirin; Z79.899 Other long term (current) drug therapy; Z86.73 Personal history of transient ischemic attack (TIA), and cerebral infarction without residual deficits